=== PATIENT | female | born 1995 | race Caucasian/White ===

== ENCOUNTER → 2016-02-24 | Outpatient (CLI) | payer OTHER ==
[2016-02-24 14:39] LABS: HEMATOCRIT 36.6 % (37-47); MEAN CELL VOLUME 89.3 fL (80-100); MEAN CORPUSCULAR HGB CONC 33.6 g/dl (32-36); MEAN PLATELET VOLUME 9.8 fL (7.4-10.4); PLATELET COUNT 257 K/uL (130-400); WHITE BLOOD COUNT 12.22 K/uL (4.8-10.8)
--- NOTE | 2016-02-25 11:12 | CODING QUERY NO DIAGNOSIS ---
: 1995 TREATMENT RENDERED WITHOUT A DIAGNOSIS To promote full compliance with coding requirements relating to patient care, physician participation is requested in all cases of professional fee coder uncertainty. Please assist us with providing a diagnosis/symptom for the test(s) below: A diagnosis/symptom was not documented on your Order. A valid diagnosis/symptom is required to bill all insurances. Please remember that we are unable to code a diagnosis of rule out, probable, possible, questionable, or suspected. Tests that require a diagnosis: DOS: 02/24/16 * CBC w/o Differential DIAGNOSIS: * Cytomegalovirus IGG AB DIAGNOSIS: * Cytomegalovirus IGM AB DIAGNOSIS: * Ilia Barahona Viral Capsid IGG DIAGNOSIS: * Ilia Barahona Viral Capsid IGM DIAGNOSIS: Provider Signature: Date: Thank you Marlena Varner [facility] Information Management Once completed, please kindly fax back to [phone] For questions please call [phone]
[2016-02-26 20:45] LABS: CYTOMEGALOVIRUS IGG AB <0.91; EPSTEIN BARR VIR CAPSID IGG <0.91 INDEX
== END | disposition home or self-care (01) ==
LOC: C.LAB1850 12:58
PROVIDERS: ATTEND Emergency Medicine
DX: I88.9 Nonspecific lymphadenitis, unspecified (principal)